=== PATIENT | female | born 1940 | race African-American/Black ===

== ENCOUNTER 2019-01-23 11:20 | Emergency (ER) | payer MEDICARE, MEDICAID ==
[~2019-01-23] VITALS: Ht 165.1 cm; Wt 135.0 kg
[2019-01-23] MEDS ORDERED: ONDANSETRON HCL 4MG/2ML INJ IV STA (12:20)
[2019-01-23] MEDS ORDERED: PANTOPRAZOLE SODIUM 40 MG/VIAL IV STA (12:20)
[2019-01-23] MEDS ORDERED: ONDANSETRON HCL 4MG/2ML INJ IV ONE (12:30)
[2019-01-23 12:39] LABS: MEAN CORPUSCULAR HEMOGLOBIN 30.1 pg (28.0-32.0); MEAN CORPUSCULAR VOLUME 95.8 fL (81.0-99.0); MEAN PLATELET VOLUME 7.3 fl (7.4-10.4); PLATELET 432 x1000/uL (130-400); RED BLOOD CELL COUNT 2.15 mill/uL (4.2-5.4)
[2019-01-23 12:43] LABS: CHLORIDE 104 mEq/L (98-107)
[2019-01-23 12:46] LABS: HEMATOCRIT. 20.6 % (36.0-48.0); HEMOGLOBIN. 6.5 g/dL (12.0-16.0)
[2019-01-23 12:59] LABS: PLATELET ESTIMATE SLIGHTLY INCREASED
[2019-01-23 13:00] LABS: INR 3.8; PROTHROMBIN TIME 36.8 sec (9.6-11.0)
[2019-01-23] MEDS ORDERED: CALCIUM CHLORIDE 1GM/10ML SYR IV ONE ×3 (13:00→20:18)
[2019-01-23] MEDS ORDERED: SODIUM BICARBONATE 8.4% 1 MEQ/ML 50ML SYR IV ONE ×3 (13:00→17:33)
[2019-01-23] MEDS ORDERED: DEXTROSE 50% WATER 50ML SYRINGE IV ONE ×2 (13:00→20:24)
[2019-01-23] MEDS ORDERED: INSULIN REGULAR (HUMULIN R) 300UNITS/3ML IV ONE (13:00)
[2019-01-23] MEDS ORDERED: ALBUTEROL (0.083%) 2.5MG/3ML NEB HHN ONE (13:00)
[2019-01-23] MEDS ORDERED: PHYTONADIONE 10 MG in DEXTROSE 5% WATER 50 ML IV NR (13:15)
[2019-01-23] MEDS ORDERED: ALBUTEROL (0.5%) 2.5MG/0.5ML NEB HHN ONE (15:21)
[2019-01-23] MEDS ORDERED: SODIUM CHLORIDE 0.9% 10ML VIAL ONE (15:50)
[2019-01-23] MEDS ORDERED: VECURONIUM BROMIDE 10 MG/VIAL IV ONE (15:50)
[2019-01-23] MEDS ORDERED: ETOMIDATE 2MG/ML 10ML VIAL IV ONE (15:50)
[2019-01-23] MEDS ORDERED: PANTOPRAZOLE 80 MG in SODIUM CHLORIDE 0.9% 100 ML IV SCH (16:15)
[2019-01-23] MEDS ORDERED: IPRATROPIUM/ALBUTEROL 0.5-3(2.5)MG/3ML NEB HHN SCH ×2 (16:15→18:00)
[2019-01-23] MEDS ORDERED: DEXT 5%/0.45% NACL 1000ML 1,000 ML IV SCH (16:15)
[2019-01-23] MEDS ORDERED: ACETAMINOPHEN 325MG TABLET PO PRN (16:15)
[2019-01-23] MEDS ORDERED: GUAIFENESIN 200MG/10ML SUGAR FREE UDC PO PRN (16:15)
[2019-01-23] MEDS ORDERED: ONDANSETRON HCL 4MG/2ML INJ IV PRN (16:15)
[2019-01-23] MEDS ORDERED: DIPHENHYDRAMINE 50MG/ML VIAL IV PRN (16:15)
[2019-01-23] MEDS ORDERED: DOCUSATE SODIUM 100MG CAPSULE PO PRN (16:15)
[2019-01-23] MEDS ORDERED: NOREPINEPHRINE 4 MG in DEXT 5% WATER 246 ML IV ONE (16:15)
[2019-01-23] MEDS ORDERED: CLONIDINE 0.1MG TABLET PO PRN (16:15)
[2019-01-23] MEDS ORDERED: IPRATROPIUM/ALBUTEROL 0.5-3(2.5)MG/3ML NEB INH PRN (16:15)
[2019-01-23] MEDS ORDERED: MAGNESIUM/ALUMINUM HYDROXIDE/SIMETHICONE 30ML UDC PO PRN (16:15)
[2019-01-23] MEDS ORDERED: DOPAMINE 400MG/250ML PREMIX 250 ML IV ONE ×2 (16:30→17:15)
[2019-01-23] MEDS ORDERED: DEXTROSE 50% WATER 50ML SYRINGE IV PRN (16:30)
[2019-01-23] MEDS ORDERED: METRONIDAZOLE 500 MG PREMIX 100 ML IV SCH (16:45)
[2019-01-23] MEDS ORDERED: CEFEPIME 1,000 MG in DEXTROSE 5% WATER 50 ML IV SCH (16:45)
[2019-01-23] MEDS ORDERED: IPRATROPIUM/ALBUTEROL 0.5-3(2.5)MG/3ML NEB HHN PRN (16:45)
[2019-01-23] MEDS ORDERED: EPINEPHRINE 0.1MG/ML (1:10,000) 10ML SYR ONE ×2 (16:58→17:17)
[2019-01-23] MEDS ORDERED: BLOOD SUGAR DIAGNOSTIC STRIP TEST SCH (17:00)
[2019-01-23] MEDS ORDERED: SODIUM BICARBONATE 7.5% 0.9 MEQ/ML 50ML SYR IV ONE (17:17)
[2019-01-23] MEDS ORDERED: MAGNESIUM SULFATE 4G IN WATER 100ML PREMIX IV ONE (17:17)
[2019-01-23] MEDS ORDERED: AMIODARONE HCL 50MG/ML 3ML VIAL IV ONE (17:17)
[2019-01-23] MEDS ORDERED: NOREPINEPHRINE 4MG/250ML PMX 250 ML IV SCH (17:30)
[2019-01-23] MEDS ORDERED: SODIUM BICARBONATE 150 MEQ in DEXTROSE 5% WATER 1,000 ML IV SCH (17:45)
[2019-01-23 17:57] LABS: BG BASE EXCESS -18.7 mmol/L (-2.0-2.0); BG CARBOXYHEMOGLOBIN 1.7 % (0.5-1.5); BG DEOXYHEMOGLOBIN 0.9 % (0.0-5.0); BG FRACTION INSPIRED OXYGEN 100; BG HCO3 ACT 10.7 mmol/L (22.0-26.0); BG METHEMOGLOBIN 0.3 % (0.0-1.5); BG OXYGEN SATURATION 99.1 % (92.0-98.5); BG OXYHEMOGLOBIN 97.1 % (94.0-97.0); BG PH 7.002 (7.350-7.450); BG PO2 199.7 mmHg (75.0-100.0); BG SAMPLE SITE LEFT FEMORAL; BG TIDAL VOLUME(mL) 500 mL; BG TOTAL HEMOGLOBIN 5.1 g/dL (12.0-18.0); BG VENT MODE VENT - A/C; BG VENT RATE 14 set
[2019-01-23] MEDS ORDERED: INSULIN LISPRO 100 UNITS/ML SUBCUT SCH (18:20)
[2019-01-23 18:47] LABS: BASOPHILS % 0.5 % (0.0-2.0); EOSINOPHILS % 0.2 % (0.0-5.0); LYMPHOCYTES % 10.2 % (20.0-50.0); MEAN CORPUSCULAR HEMOGLOBIN 27.9 pg (28.0-32.0); MEAN CORPUSCULAR VOLUME 94.9 fL (81.0-99.0); MEAN PLATELET VOLUME 7.7 fl (7.4-10.4); MONOCYTES % 2.8 % (2.0-8.0); NEUTROPHILS % 86.3 % (40.0-76.0); PLATELET 199 x1000/uL (130-400); RED BLOOD CELL COUNT 2.12 mill/uL (4.2-5.4); RED CELL DISTRIBUTION WIDTH 23.1 % (11.6-14.6)
[2019-01-23 18:51] LABS: HEMOGLOBIN. 5.9 g/dL (12.0-16.0)
[2019-01-23 18:52] LABS: HEMATOCRIT. 20.1 % (36.0-48.0)
[2019-01-23 18:57] LABS: INR 3.6; PROTHROMBIN TIME 35.2 sec (9.6-11.0)
[2019-01-23] MEDS ORDERED: DOPAMINE 400MG/250ML PREMIX 250 ML IV NR (19:15)
[2019-01-23 19:59] VITALS: BP 97/76
[2019-01-23] MEDS ORDERED: NOREPINEPHRINE 4MG/250ML PMX 250 ML IV NR (20:00)
[2019-01-23] MEDS ORDERED: NOREPINEPHRINE 4 MG in DEXT 5% WATER 246 ML IV SCH (20:00)
[2019-01-23] MEDS ORDERED: INSULIN REGULAR (HUMULIN R) 300UNITS/3ML ONE (20:26)
[2019-01-23] MEDS ORDERED: EPOETIN ALFA 10000UNITS/ML VIAL SUBCUT SCH (21:00)
== END 2019-01-23 20:44 | disposition expired ==
LOC: ER 11:20 → EDBEDREQTM 13:12 → EDBEDREQ 13:12 → EDBEDREQSVC 13:12 → ENRESERV 14:00 → EDRESERV 14:21 → CANRESERV 14:21 → EDBEDREQTM 16:01 → EDBEDREQSVC 16:01 → EDBEDREQ 16:01 → SUPCPDRO 16:15 → CANRESERV 20:06 → ENRESERV 20:06 → ER 20:44 → CANBEDREQ 20:54 → ER 23:00
DX: I46.9 Cardiac arrest, cause unspecified (principal); K92.2 Gastrointestinal hemorrhage, unspecified; D64.9 Anemia, unspecified; E88.09 Other disorders of plasma-protein metabolism, not elsewhere classified; E87.2 Acidosis; D72.829 Elevated white blood cell count, unspecified; I12.0 Hypertensive chronic kidney disease with stage 5 chronic kidney disease or end stage renal disease; R90.82 White matter disease, unspecified; N18.6 End stage renal disease; Z99.2 Dependence on renal dialysis; I48.91 Unspecified atrial fibrillation
CPT/HCPCS: 31500; 36415; 36556; 36600; 70450; 71045; 80053; 82140; 82375; 82805; 82962; 83036; 83605; 83690; 83721; 84484; 85025; 85610; 86850; 86900; 86901; 86920; 86927; 92950; 96365; 96367; 96375; 99291; C9113; J0282; J1265; J1815; J2405; J3430; J3475; J3490; J7040; J7050; J7060; J7070; J7611; P9017; P9016